=== PATIENT | female | born 1970 | race Caucasian/White ===

== ENCOUNTER → 2016-12-29 | Outpatient (CLI) | payer BC ==
--- NOTE | 2016-12-29 21:11 | WWHP ---
DATE OF DICTATION: 12/29/2016 CHIEF COMPLAINT: The patient would like to have her IUD removed. HISTORY OF PRESENT ILLNESS: This is a 46-year-old G1, P1 with an LMP of 2010. The patient has had a Mirena IUD since 2010. She believes it was placed on 07/19/11. She has been amenorrheic while using the Mirena IUD. She started spotting one week ago, and this lasted for 3 to 4 days. She realized that it has been more than 5 years since her IUD was placed and that it should be removed. She is interested in some form of hormonal control such as control pills. She is not interested in having another IUD at this time. Her periods used to be fairly heavy and long before she had the Mirena IUD placed; they typically would last about 8 to 9 days. PAST MEDICAL HISTORY: Arthritis and history of plantar fasciitis. MEDICATIONS: She is a Mirena IUD in place, as above. She takes no medications by mouth. ALLERGIES: NO KNOWN DRUG ALLERGIES. PAST SURGICAL HISTORY: In 1985 she had an appendectomy. PAST OB HISTORY: One vaginal delivery approximately 2000. She did have preeclampsia with this. PAST BICYCLE TECHNICIAN HISTORY: She has been amenorrheic since using the Mirena IUD and previously had regular long periods prior to this. She has no history of STDs. SOCIAL HISTORY: She quit smoking in 2 months ago. Prior to that she had quit smoking several other times but often found herself smoking for a few months again. She has about 2 alcoholic drinks every 2 months. She denies drug use. She is previously and has been with her boyfriend since about 2005. She lives with him and is engaged. 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 FAMILY HISTORY: Grandfather had hypertension and heart disease. She also had a grandfather with dementia. REVIEW OF SYSTEMS: Weight has been stable. She denies respiratory, cardiac or GI problems. MUSCULOSKELETAL: She does have some joint problems and has had some issues with her hip. : She has had some instances where she has to get to the bathroom right away when she has some urinary urgency. PHYSICAL EXAM: Blood pressure 138/88. Height 5 feet 5 inches. Weight 164 pounds. Temperature 97.8. Pulse 82. This is a well-developed, well-nourished white female who is alert and oriented x3, in no acute distress. HEENT is within normal limits. NECK: Supple without mass or thyromegaly. CHEST AND LUNGS: Clear to auscultation. HEART: Regular rate and rhythm. Breasts are without mass or discharge. Axillary exam is negative for adenopathy. BACK: Negative for CVA tenderness. ABDOMEN: Soft, nontender, without palpable masses. PELVIC EXAM: Normal external genitalia. Cervix and vagina appear normal. The IUD string protrudes approximately 2 cm from the cervical os. There is some cervical mucus at the os. There is no unusual discharge. There is no cervical motion tenderness. The uterus is midposition, multiparous, nongravid size and nontender. There are no palpable adnexal masses or tenderness. The IUD was removed without difficulty. The patient tolerated this procedure well. Rectal exam is negative for mass or tenderness and is negative for occult blood. EXTREMITIES: Nontender. IMPRESSION: 1. A 46-year-old gynecologically healthy female who has done well with the Mirena IUD. 2. The IUD is overdue for removal. 3. Patient is requesting hormonal contraception for control. PLAN: 1. Pap smear was performed. 2. Self breast examination was discussed. 3. She is due for a mammogram, and an order slip was given to the patient for this. 4. We discussed many control options, including barrier methods, hormonal methods, IUD and male and female sterilization. The patient would like to have a trial of the NuvaRing. Instructions on its use were given to the patient. She will start this today and use this as directed. If the NuvaRing is not covered by her insurance, she will start Ortho Tri-Cyclen Lo 1 daily, and she can start this today if the NuvaRing is not covered by her insurance. 5. She will check her own blood pressure. She does have a home blood pressure cuff. I have recommended that she do this on a regular basis, especially with the history of preeclampsia with her . 6. She will return in one year and p.r.n. She was instructed to call if she has any questions or concerns regarding her hormonal control. 7. We discussed hormonal control, including possible side effects and risks. We also discussed the increased risk for blood clots with control. She was advised to remain a nonsmoker. She states she will discontinue the control if she starts smoking again and will let me know if this is the case. She will also let me know if she wants to start any other method of control. I have recommended that she use condoms through the first month of the control and as needed after that. 8. She will return in one year.
== END | disposition home or self-care (01) ==
LOC: WWCWWP 12:20
PROVIDERS: ATTEND Obstetrics & Gynecology
DX: Z01.419 Encounter for gynecological examination (general) (routine) without abnormal findings (principal)

== ENCOUNTER → 2016-12-30 | Outpatient (CLI) | payer BC ==
--- NOTE | 2016-12-30 13:13 | MM ---
Reason for exam: screening (asymptomatic). Last mammogram was performed 3 years and 6 months ago. History: Took hormonal contraceptives for 10 years. Physical Findings: A clinical breast exam by your physician is recommended on an annual basis and results should be correlated with mammographic findings. MG Screening Mammo w CAD Bilateral CC and MLO view(s) were taken. Prior study comparison: July 12, 2013, bilateral digital screening mammo w/CAD. The breast tissue is heterogeneously dense. This may lower the sensitivity of mammography. There is no discrete abnormality. No significant changes when compared with prior studies. ASSESSMENT: Negative, BI-RAD 1 RECOMMENDATION: Routine screening mammogram of both breasts in 1 year.
== END ==
LOC: RADMAMWWP 08:13
PROVIDERS: ATTEND Obstetrics & Gynecology
DX: Z12.31 Encounter for screening mammogram for malignant neoplasm of breast (principal)